=== PATIENT | female | born 1955 | race Caucasian/White ===

== ENCOUNTER 2016-07-05 06:22 | Emergency (ER) | payer BC ==
[2016-07-05 07:01] VITALS: TEMP 98.5; BMI 26.9
[2016-07-05] MEDS ORDERED: HYDROmorphone 1 MG INJECTION IV ONE (07:33)
[2016-07-05] MEDS ORDERED: NS 1,000 ML IV ONE (07:33)
[2016-07-05] MEDS ORDERED: ONDANSETRON HCL 4 MG/2 ML VIAL IV ONE (07:33)
[2016-07-05] MEDS ORDERED: ONDANSETRON HCL 4 MG/2 ML VIAL IV PRN (07:33)
[2016-07-05] MEDS ORDERED: HYDROmorphone 1 MG INJECTION IV PRN (07:33)
--- NOTE | 2016-07-05 07:35 | EDPRACDOC ---
- General Information Chief Complaint: Abdominal Pain Stated Complaint: ABD PAIN Time Seen by Provider: 07/05/16 07:08 Information Source: Patient Mode Of Arrival: Car Home Medications: Home Medications Trazodone HCl [Desyrel] 150 mg PO QHS 09/08/12 Sumatriptan Succinate [Imitrex] 100 mg PO . DIRECTED PRN PRN 09/11/12 Estradiol [Estrace] 1 mg PO HS 08/24/13 Promethazine [Phenergan] 25 mg PO Q8H PRN 08/24/13 Hydrocodone Bit/Acetaminophen [[place] 10-325 Tablet] 1 - 2 each PO Q6H PRN Omeprazole [Prilosec] 20 mg PO DAILY PRN 01/02/15 Atorvastatin Calcium [Lipitor] 20 mg PO HS 07/05/16 Ciprofloxacin HCl [Cipro] 500 mg PO BID #20 tab 07/05/16 Hydrocodone Bit/Acetaminophen [Lortab 5/325] 1 tab PO Q6H PRN #14 tab 07/05/16 L.acidoph & Paracasei,B.lactis [Probiotic] 1 each PO DAILY 07/05/16 Metronidazole [Flagyl] 500 mg PO BID #28 tab 07/05/16 Allergies/Adverse Reactions: Allergies Allergy/AdvReac Type Severity Reaction Status Date / Time No Known Allergies Allergy Verified 07/05/16 07:53 - History of Present Illness Onset: 2 days Pain Location: Reports: Diffuse Pain Context: Reports: Spontaneous Pain Severity: Mild Pain Quality: Reports: Aching Pain Radiation: Reports: No Radiation Adult Abdominal History: Denies: Abdominal Surgery Female Abdominal History: Reports: Abdominal Surgery Modifying Factors: improves with: Nothing Female Associated Signs & Symptoms: Reports: Nausea Oral Intake: Normal Urinary Output: Normal ED Past Medical History - History Reviewed Yes Nurses notes reviewed and agree except as marked - Patient Medical History Cardiac History: Reports: Hypercholesterolemia Respiratory History: Comment Only: COPD (bronchititis) GI/ History: Reports: Kidney Stones Musculoskeletal History: Reports: Arthritis Psychological History: Denies: Depression Systemic History: Reports: Anemia. Denies: Cancer Surgical History: Reports: Hysterectomy, Tonsillectomy/Adnoidectomy - Family Medical History Reports: Hypertension (mother, brother), Cardiac Disorders (Mother with cardiac ablation for what sounds like atrial fibrillation) - Social Medical History Smoking Status: Never smoker EDM Review of Systems - Review of Systems ROS Negative Except as Marked: Yes All systems reviewed and were negative except as marked - Physical Exam Constitutional: Alert (Awake), No apparent distress Oriented to: Time, Person, Place Last recorded Vital Signs: Last Vital Signs Temp 98.5 F 07/05/16 06:58 Pulse 60 07/05/16 08:44 Resp 20 07/05/16 08:44 BP 128/65 07/05/16 08:44 Pulse Ox 98 07/05/16 08:44 Oxygen Pulse Oxygen Saturation 98 O2 Device Nasal Cannula Oxygen Flow Rate 2 Fraction of Inspired Oxygen ( FIO2) - HEENT Head: Normal ( normocephalic) Eye Exam: Normal (PERRL, EOMI, Sclera white) Oropharynx: Normal (Pharynx:Moist without exudate,Gums-no swelling) Tympanic Membrane: Normal ENT EAC: Normal TMJ: Normal Nose: No Symptoms Reported (septum midline) Neck: Normal (FROM, trachea at midline) - Respiratory/Cardiovascular Respiratory: Normal - CTA (BBS clear to auscultation without adventitious sounds ) Cardiovascular: Normal (RRR without murmur, gallop or rub) - GI Auscultation: Normal (NABS) Palpation: Normal (Soft,No rebound or guarding, non distended) Tenderness: Non tender Aceves's Sign: Negative - Musculoskeletal Back: Normal (Non-Tender) Extremities: Normal (Normal tone, Pulses 2+ No cyanosis or edema, FROM) - Integumentary Skin: Normal, Warm, Dry Lymphatics: Normal (no adenopathy) - Neurologic Memory Impaired: Normal Motor Function: Normal (Normal tone, Pulses 2+ No cyanosis or edema, FROM) Cranial Nerve: Normal (CN II-X11 intact sensation, strength 5/5) Cerebellar: Normal Mood Description: Normal Perception: Normal - Results 07/05/16 08:05 07/05/16 08:05 WBC 10.3 xk/uL (3.8-10.8) 07/05/16 08:05 RBC 4.13 xM/uL (4.20-5.40) L 07/05/16 08:05 Hgb 13.0 g/dL (12.0-16.0) 07/05/16 08:05 Hct 38.4 % (36-47) 07/05/16 08:05 MCV 93 fL (81-99) 07/05/16 08:05 MCH 31.6 pg (27-32) 07/05/16 08:05 MCHC 33.9 g/dl (33-36) 07/05/16 08:05 RDW 12.6 % (11.5-14.5) 07/05/16 08:05 Plt Count 287 xk/uL (130-400) 07/05/16 08:05 MPV 8.1 fL (7.4-10.4) 07/05/16 08:05 Neut % (Auto) 79.0 % (45-76) H 07/05/16 08:05 Lymph % (Auto) 14.4 % (17-44) L 07/05/16 08:05 Weber % (Auto) 5.7 % (3-10) 07/05/16 08:05 Eos % (Auto) 0.4 % (0-5) 07/05/16 08:05 Baso % (Auto) 0.5 % (0-2) 07/05/16 08:05 Absolute Neuts (auto) 8.14 xk/uL (1.7-8.2) 07/05/16 08:05 Absolute Lymphs (auto) 1.44 xk/uL (0.65-4.75) 07/05/16 08:05 Sodium 138 mEq/L (137-146) 07/05/16 08:05 Potassium 3.8 mEq/L (3.5-5.1) 07/05/16 08:05 Chloride 104 mEq/L (98-107) 07/05/16 08:05 Carbon Dioxide 24 mMOL/L (22-33) 07/05/16 08:05 Anion Gap 14 mEq/L (8-16) 07/05/16 08:05 BUN 19 MG/DL (7-17) H 07/05/16 08:05 Creatinine 0.80 MG/DL (0.52-1.04) 07/05/16 08:05 Estimated GFR (MDRD) > 60 mL/min (>=60) 07/05/16 08:05 Glucose 88 MG/DL (70-99) 07/05/16 08:05 Calculated Osmolality 267 MOs/Kg (270-290) L 07/05/16 08:05 Calcium 8.7 MG/DL (8.4-10.2) 07/05/16 08:05 Total Bilirubin 0.5 MG/DL (0.2-1.3) 07/05/16 08:05 AST 25 IU/L (14-36) 07/05/16 08:05 ALT 33 IU/L (9-52) 07/05/16 08:05 Alkaline Phosphatase 56 IU/L (55-165) 07/05/16 08:05 Troponin I < 0.01 ng/mL (<.04) 07/05/16 08:05 Total Protein 7.1 G/DL (6.3-8.2) 07/05/16 08:05 Albumin 4.2 G/DL (3.5-5.0) 07/05/16 08:05 Lipase 49 U/L (23-300) 07/05/16 08:05 Urine Color Dark yellow 07/05/16 07:03 Urine Clarity Sl cldy 07/05/16 07:03 Urine pH 6.0 (5.0-8.0) 07/05/16 07:03 Ur Specific [place] >/=1.035 (1.003-1.035) 07/05/16 07:03 Urine Protein 1+ (NEG/TRACE) H 07/05/16 07:03 Urine Glucose (UA) Neg (NEGATIVE) 07/05/16 07:03 Urine Ketones Neg (NEGATIVE) 07/05/16 07:03 Urine Occult Blood Neg (NEG/TRACE) 07/05/16 07:03 Urine Nitrite Neg (NEGATIVE) 07/05/16 07:03 Urine Bilirubin Neg (NEGATIVE) 07/05/16 07:03 Urine Urobilinogen <2.0 MG/DL (0-1) 07/05/16 07:03 Ur Leukocyte Esterase Neg (NEGATIVE) 07/05/16 07:03 Urine RBC 5-10 (0-5) H 07/05/16 07:03 Urine WBC 0-2 (0-5) 07/05/16 07:03 Ur Epithelial Cells 3+ 07/05/16 07:03 Urine Bacteria 2+ (NEG/FEW) H 07/05/16 07:03 Hyaline Casts 2-5 (0-2) H 07/05/16 07:03 Urine Mucus Mod (NEG/OCC) H 07/05/16 07:03 Lab Results 07/05/16 07/05/16 07/05/16 08:05 08:05 08:05 WBC 10.3 RBC 4.13 L Hgb 13.0 Hct 38.4 MCV 93 MCH 31.6 MCHC 33.9 RDW 12.6 Plt Count 287 MPV 8.1 Neut % (Auto) 79.0 H Lymph % (Auto) 14.4 L Weber % (Auto) 5.7 Eos % (Auto) 0.4 Baso % (Auto) 0.5 Absolute Neuts (auto) 8.14 Absolute Lymphs (auto) 1.44 Sodium 138 Potassium 3.8 Chloride 104 Carbon Dioxide 24 Anion Gap 14 BUN 19 H Creatinine 0.80 Estimated GFR (MDRD) > 60 Glucose 88 Calculated Osmolality 267 L Calcium 8.7 Total Bilirubin 0.5 AST 25 ALT 33 Alkaline Phosphatase 56 Troponin I Cancelled < 0.01 Total Protein 7.1 Albumin 4.2 Lipase 49 Urine Color Urine Clarity Urine pH Ur Specific [place] Urine Protein Urine Glucose (UA) Urine Ketones Urine Occult Blood Urine Nitrite Urine Bilirubin Urine Urobilinogen Ur Leukocyte Esterase Urine RBC Urine WBC Ur Epithelial Cells Urine Bacteria Hyaline Casts Urine Mucus 07/05/16 07:03 WBC RBC Hgb Hct MCV MCH MCHC RDW Plt Count MPV Neut % (Auto) Lymph % (Auto) Weber % (Auto) Eos % (Auto) Baso % (Auto) Absolute Neuts (auto) Absolute Lymphs (auto) Sodium Potassium Chloride Carbon Dioxide Anion Gap BUN Creatinine Estimated GFR (MDRD) Glucose Calculated Osmolality Calcium Total Bilirubin AST ALT Alkaline Phosphatase Troponin I Total Protein Albumin Lipase Urine Color Dark yellow Urine Clarity Sl cldy Urine pH 6.0 Ur Specific [place] >/=1.035 Urine Protein 1+ H Urine Glucose (UA) Neg Urine Ketones Neg Urine Occult Blood Neg Urine Nitrite Neg Urine Bilirubin Neg Urine Urobilinogen <2.0 Ur Leukocyte Esterase Neg Urine RBC 5-10 H Urine WBC 0-2 Ur Epithelial Cells 3+ Urine Bacteria 2+ H Hyaline Casts 2-5 H Urine Mucus Mod H - EKG EKG #1 [place]: Normal Rhythm: NSR Block: None Hypertrophy: None ST: Normal - Departure Yes I personally saw and evaluated the patient. Disposition: Home Condition: Good Final Diagnosis: Abdominal pain Instructions: Acute Abdominal Pain (ED) Education/Counseling Given To: Patient, Family Member Education/Counseling Given Regarding: Diagnosis, Treatment, Prognosis Referrals: Chaur Ann NP [Primary Care Provider] - One Week Laz Light MD [Staff Provider No Admit] - One Week Prescriptions: New Ciprofloxacin HCl [Cipro] 500 mg PO BID #20 tab Hydrocodone Bit/Acetaminophen [Lort[place] 5/325] 1 tab PO Q6H PRN #14 tab PRN Reason: Pain Metronidazole [Flagyl] 500 mg PO BID #28 tab No Action Trazodone HCl [Desyrel] 150 mg PO QHS Sumatriptan Succinate [Imitrex] 100 mg PO . DIRECTED PRN PRN PRN Reason: Migraine Headache Promethazine [Phenergan] 25 mg PO Q8H PRN PRN Reason: Nausea/Vomiting Estradiol [Estrace] 1 mg PO HS Omeprazole [Prilosec] 20 mg PO DAILY PRN PRN Reason: Acid Reflux Hydrocodone Bit/Acetaminophen [[place] 10-325 Tablet] 1 - 2 each PO Q6H PRN PRN Reason: Pain Atorvastatin Calcium [Lipitor] 20 mg PO HS L.acidoph & Paracasei,B.lactis [Probiotic] 1 each PO DAILY
[2016-07-05 07:47] LABS: LEUKOCYTES/URINE NEG (NEGATIVE); NITRITE/URINE NEG (NEGATIVE); URINE OCCULT BLOOD NEG (NEG/TRACE); WBC/URINE 0-2 (0-5)
[2016-07-05] MEDS ORDERED: Pharmacy Review for Metformin - IV Contrast Given SCH (08:00)
[2016-07-05 08:20] LABS: AUTOMATED BASOPHIL 0.5 % (0-2); AUTOMATED EOSINOPHIL 0.4 % (0-5); AUTOMATED LYMPH 14.4 % (17-44); AUTOMATED MONOCYTE 5.7 % (3-10); MPV 8.1 fL (7.4-10.4)
[2016-07-05 08:31] LABS: BLOOD UREA NITROGEN 19 MG/DL (7-17); CALCIUM 8.7 MG/DL (8.4-10.2); CALCULATED OSMOLALITY 267 MOs/Kg (270-290); CHLORIDE 104 mEq/L (98-107); GLUCOSE 88 MG/DL (70-99); SODIUM LEVEL 138 mEq/L (137-146); TOTAL PROTEIN 7.1 G/DL (6.3-8.2)
--- NOTE | 2016-07-05 08:59 | DIRPT ---
CLINICAL DATA: Mid abdominal pain for 2 days, nausea, inflammation, prior hysterectomy EXAM: CT ABDOMEN AND PELVIS WITH CONTRAST TECHNIQUE: Multidetector CT imaging of the abdomen and pelvis was performed using the standard protocol following bolus administration of intravenous contrast. Sagittal and coronal MPR images reconstructed from axial data set. CONTRAST: Dilute oral contrast. 100 cc Isovue 370 IV. COMPARISON: 01/04/2015 FINDINGS: Minimal subsegmental atelectasis at lung bases. Liver, spleen, gallbladder, pancreas, kidneys, and adrenal glands normal. Normal appendix. Bowel wall thickening of distal ileum with hazy edema within associated mesenteries. Small amount of low-attenuation free pelvic and perihepatic free fluid. Remaining large and small bowel loops normal appearance without evidence of bowel obstruction. Small hiatal hernia, remainder stomach decompressed. No free intraperitoneal air, mass or adenopathy. Bladder and ureters normal appearance. Uterus surgically absent with nonvisualization of ovaries. Grade 1 spondylolisthesis L5-S1 secondary to BILATERAL spondylolysis L5. No acute osseous findings. IMPRESSION: Terminal ileitis, differential diagnosis including infection and inflammatory bowel disease, ischemia considered less likely due the lack of significant atherosclerotic disease changes and distribution. Associated small amount of nonspecific free intraperitoneal fluid. Small hiatal hernia. Grade 1 spondylolisthesis L5-S1 secondary to BILATERAL spondylolysis L5. Electronically Signed By: William Aguirre M.D. On: 07/05/2016 08:56
[2016-07-05 09:59] VITALS: BP 133/58; PULSE 61
== END 2016-07-05 09:58 | disposition home or self-care (01) ==
LOC: ED 06:22
DX: R10.84 Generalized abdominal pain (principal); E78.00 Pure hypercholesterolemia, unspecified; Z79.899 Other long term (current) drug therapy
CPT/HCPCS: 36415; 74177; 80053; 81001; 83690; 84484; 85025; 93005; 96361; 96374; 96375; 96376; 99284; A9698; J1170; J2405